=== PATIENT | female | born 1975 | race Caucasian/White ===

== ENCOUNTER 2018-10-01 21:50 | Emergency (ER) | payer BC, MEDICAID ==
--- NOTE | 2018-10-01 22:27 | EDM.PDOC ---
ED HPI GENERAL MEDICAL PROBLEM - General Chief Complaint: Diabetic Complaint Stated Complaint: ELEVATED GLUCOSE Time Seen by Provider: 10/01/18 22:00 Source of Information: Reports: Patient, Old Records - History of Present Illness INITIAL COMMENTS - FREE TEXT/NARRATIVE: Presents to the emergency department with history of exhaustion of prescriptions were not able to be filled due to no primary provider. 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 She has exhausted her spironolactone and metformin prescriptions due to recently moving to the area speaking of being denied in [place] as well as another due to no current prescription and/or provider. She is now going to be living in [place] using [facility] as her primary and is plan is to establish with a [place] provider. 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 She hand carries several pages of old records with her which provides us for photocopying to place in her file for further details of procedures and medical history. Onset: Gradual Duration: Day(s): Location: Reports: Head Severity: Moderate Improves with: Reports: None Worsens with: Reports: None Associated Symptoms: Reports: Confusion - Related Data Allergies Allergy/AdvReac Type Severity Reaction Status Date / Time acetaminophen Allergy Cannot Verified 10/01/18 22:27 Remember amoxicillin Allergy Cannot Verified 10/01/18 22:27 Remember cephalexin [From Keflex] Allergy Cannot Verified 10/01/18 22:27 Remember ciprofloxacin Allergy Cannot Verified 10/01/18 22:27 Remember doxycycline Allergy Cannot Verified 10/01/18 22:27 Remember gabapentin [From Neurontin] Allergy Cannot Verified 10/01/18 22:27 Remember hydrocodone Allergy Cannot Verified 10/01/18 22:27 Remember ibuprofen Allergy Cannot Verified 10/01/18 22:27 Remember oxycodone [From Percocet] Allergy Cannot Verified 10/01/18 22:27 Remember parsley Allergy Cannot Verified 10/01/18 22:27 Remember peanut Allergy Cannot Verified 10/01/18 22:27 Remember tizanidine Allergy Cannot Verified 10/01/18 22:27 Remember tramadol Allergy Cannot Verified 10/01/18 22:27 Remember Home Meds: Home Meds Spironolactone [Aldactone] 100 mg PO BID 30 Days #60 tablet 10/01/18 [Rx] metFORMIN HCl [Metformin HCl ER] 1,000 mg PO BID #120 tab.sr.24h 10/01/18 [Rx] Past Medical History HEENT History: Reports: Impaired Vision Cardiovascular History: Reports: None Respiratory History: Reports: Asthma Gastrointestinal History: Reports: None Genitourinary History: Reports: None 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 Musculoskeletal History: Reports: None Neurological History: Reports: Concussion, Head Trauma, Migraines, Other (See Below) (AVM) Endocrine/Metabolic History: Reports: Hypothyroidism Hematologic History: Reports: None Immunologic History: Reports: None Oncologic (Cancer) History: Reports: None Dermatologic History: Reports: None - Infectious Disease History Infectious Disease History: Reports: None - Past Surgical History Head Surgeries/Procedures: Reports: Craniotomy, Shunt HEENT Surgical History: Reports: Tonsillectomy Female Surgical History: Reports: Hysterectomy - Past Imaging History Past Imaging History: Reports: MRA, MRI - History Comment History Comment: Very complex medical situation with minimal records provided for continuity of care Social & Family History - Family History Family Medical History: Noncontributory ED ROS GENERAL - Review of Systems Review Of Systems: See Below Constitutional: Reports: No Symptoms HEENT: Reports: No Symptoms Respiratory: Reports: No Symptoms Cardiovascular: Reports: No Symptoms Endocrine: Reports: No Symptoms GI/Abdominal: Reports: No Symptoms : Reports: No Symptoms Musculoskeletal: Reports: No Symptoms Skin: Reports: No Symptoms Neurological: Reports: Confusion, Trouble Speaking, Difficulty Walking Psychiatric: Reports: No Symptoms Hematologic/Lymphatic: Reports: No Symptoms Immunologic: Reports: No Symptoms ED EXAM GENERAL NO PERIP PULSE - Physical Exam Exam: See Below Text/Narrative:: Alert oriented with somewhat slurred speech she states is her typical self from her closed head injury AVM issues. PERRLA no icterus no injection Neck moist mucous membranes Neck soft supple no lymphadenopathy [place] clear no wheezes no crackles Cardiac no appreciated murmur. No tenderness. No edema to the lower extremities pulses correlate with apical heart rate regular General Appearance: Alert, No Apparent Distress Ears: Normal External Exam Nose: Normal Inspection, Normal Mucosa Throat/Mouth: Normal Inspection, Normal Oropharynx, Normal Voice Head: Atraumatic, Normocephalic Respiratory/Chest: No Respiratory Distress, Lungs Clear, Normal Breath Sounds, No Accessory Muscle Use, Chest Non-Tender Cardiovascular: Normal Peripheral Pulses, Regular Rate, Rhythm, No Edema, No Gallop, No JVD, No Murmur, No Rub (Female) Exam: Deferred Rectal (Female) Exam: Deferred Extremities: Normal Inspection, Normal Range of Motion, No Pedal Edema Neurological: Alert, Oriented, CN II-XII Intact, Normal Cognition, Normal Gait, Normal Reflexes, No Motor/Sensory Deficits Psychiatric: Normal Mood Skin Exam: Warm, Dry, Intact Lymphatic: No Adenopathy Course - Orders/Labs/Meds Labs: Laboratory Tests 10/01/18 Range/Units 22:06 POC Glucose 133 H (74-106) mg/dl Meds: Medications Discontinued Medications Generic Name Dose Route Start Last Admin Trade Name Freq PRN Reason Stop Dose Admin Metformin HCl 1,000 mg 10/01/18 22:17 Glucophage PO 10/01/18 22:18 ONETIME ONE Spironolactone 100 mg 10/01/18 22:18 Aldactone PO 10/01/18 22:19 ONETIME ONE Departure - Departure Time of Disposition: 22:39 Disposition: Home, Self-Care 01 Condition: Good Clinical Impression: Seizure disorder, History of closed head injury, AVM (arteriovenous malformation) brain, Hypothyroid - Discharge Information *PRESCRIPTION DRUG MONITORING PROGRAM REVIEWED*: Not Applicable *COPY OF PRESCRIPTION DRUG MONITORING REPORT IN PATIENT LISA: Not Applicable Additional Instructions: Prescriptions will be available at [facility] for you tomorrow morning. You need to establish with a provider in the vicinity that she will be living as soon as possible to maintain all of your other medications as well as routine laboratory studies are required to maintain medication efficacy. Contact clinic of your choice to establish with a primary provider as soon as possible this week to ensure you do not have exhaustion of medications. - Problem List & Annotations (1) Seizure disorder SNOMED Code(s): 643079540 Code(s): G40.909 - EPILEPSY, UNSP, NOT INTRACTABLE, WITHOUT STATUS EPILEPTICUS Status: Chronic Priority: High (2) History of closed head injury SNOMED Code(s): 65581399317503 Code(s): Z87.820 - PERSONAL HISTORY OF TRAUMATIC BRAIN INJURY Status: Chronic Priority: High (3) AVM (arteriovenous malformation) brain SNOMED Code(s): 182776054 Code(s): Q28.2 - ARTERIOVENOUS MALFORMATION OF CEREBRAL VESSELS Status: Chronic Priority: Medium (4) Hypothyroid SNOMED Code(s): 55124808 Code(s): E03.9 - HYPOTHYROIDISM, UNSPECIFIED Status: Chronic Priority: Medium Qualifiers: Hypothyroidism type: acquired Qualified Code(s): E03.9 - Hypothyroidism, unspecified - Problem List Review Problem List Initiated/Reviewed/Updated: Yes - Assessment/Plan Plan: Prescriptions will be available at [facility] for you tomorrow morning. You need to establish with a provider in the vicinity that she will be living as soon as possible to maintain all of your other medications as well as routine laboratory studies are required to maintain medication efficacy. Contact clinic of your choice to establish with a primary provider as soon as possible this week to ensure you do not have exhaustion of medications.
[2018-10-01] MEDS: metFORMIN 500 MG Tab PO ONE (22:33)
[2018-10-01] MEDS: Spironolactone 25 MG Tab PO ONE (22:33)
== END 2018-10-01 22:55 | disposition home or self-care (01) ==
LOC: KA.ED 21:50
DX: G40.909 Epilepsy, unspecified, not intractable, without status epilepticus (principal); Q28.2 Arteriovenous malformation of cerebral vessels; E03.9 Hypothyroidism, unspecified; Z87.820 Personal history of traumatic brain injury; Z88.1 Allergy status to other antibiotic agents; Z88.6 Allergy status to analgesic agent
CPT/HCPCS: 82962; 99284; A9270-GY

== ENCOUNTER 2018-10-13 22:30 | Emergency (ER) | payer BC, MEDICAID ==
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
[2018-10-13 23:29] LABS: ANION GAP 7.6 mmol/L (5-15); CHLORIDE,CL 109 mmol/L (98-115); SODIUM,NA 136 mmol/L (136-145)
[2018-10-13] MEDS: LORazepam 2 MG/ML SDV IVPUSH ONE (23:29)
[2018-10-13] MEDS: Sodium Chloride 0.9% 1,000 ML IV ONE (23:31)
[2018-10-14] MEDS: Sodium Chloride 0.9% 10 ML Syringe FLUSH PRN (00:14)
[2018-10-14] MEDS: Sodium Chloride 0.9% 1,000 ML IV ONE (00:55)
[2018-10-14] MEDS: levETIRAcetam in NaCl (iso-os) 500 MG in Premix Bag 1 BAG IV ONE ×2 (01:06)
== END 2018-10-14 01:32 ==
LOC: KA.ED 22:30
DX: G40.909 Epilepsy, unspecified, not intractable, without status epilepticus (principal); Q28.2 Arteriovenous malformation of cerebral vessels; Z79.899 Other long term (current) drug therapy; Z91.010 Allergy to peanuts; Z88.1 Allergy status to other antibiotic agents; Z88.8 Allergy status to other drugs, medicaments and biological substances
CPT/HCPCS: 36415; 80053; 80164; 82962; 85025; 96361; 96374; 99285; 99285-25; J2060; J7030